=== PATIENT | male | born 1940 | race Caucasian/White ===

== ENCOUNTER → 2016-10-26 | Outpatient (CLI) | payer MEDICARE, BC ==
[2013-05-17 03:24] VITALS: BP 138/91
[~2016-10-26] MED LIST: CRESTOR; PROSCAR5 MG PO
== END ==
LOC: LAB 07:15
DX: E78.2 Mixed hyperlipidemia (principal)

== ENCOUNTER → 2016-10-27 | Outpatient (CLI) | payer MEDICARE, BC ==
[2013-05-17 03:24] VITALS: BP 138/91
== END ==
LOC: LAB 11:39
DX: I25.10 Atherosclerotic heart disease of native coronary artery without angina pectoris (principal); R20.2 Paresthesia of skin; Z12.5 Encounter for screening for malignant neoplasm of prostate; E61.1 Iron deficiency; N52.9 Male erectile dysfunction, unspecified; E78.2 Mixed hyperlipidemia; J98.4 Other disorders of lung; L57.0 Actinic keratosis; I71.4 Abdominal aortic aneurysm, without rupture; K21.9 Gastro-esophageal reflux disease without esophagitis

== ENCOUNTER → 2017-02-24 | Outpatient (CLI) | payer MEDICARE, BC ==
[2013-05-17 03:24] VITALS: BP 138/91
[2017-02-24 17:38] LABS: HEMATOCRIT 44.8 % (42.0-52.0); HEMOGLOBIN 15.1 g/dL (13.5-18.0); MEAN CELL VOLUME 94 fl (78-100); MEAN CORPUSCULAR HEMOGLOBIN 32 pg (27-31); MEAN CORPUSCULAR HGB CONC 34 g/dL (33-37); MEAN PLATELET VOLUME 9.2 fl (7.4-10.4); PLATELET COUNT 192 K/mm3 (130-400); RED BLOOD COUNT 4.78 M/mm3 (4.20-5.60); RED CELL DISTRIBUTION WIDTH 12.9 % (11.5-14.5); WHITE BLOOD COUNT 5.2 K/mm3 (4.8-10.8)
[2017-02-24 17:42] LABS: ALBUMIN 4.1 g/dL (3.5-5.0); CALCIUM 9.4 mg/dL (8.4-10.2); POTASSIUM 4.3 mmol/L (3.6-5.0); TOTAL BILIRUBIN 0.7 mg/dL (0.2-1.3); TOTAL PROTEIN 6.9 g/dL (6.3-8.2)
[2017-02-24 18:47] LABS: LYMPHOCYTE 29 % (20-51); MONOCYTE 8 % (3-10); NEUTROPHILS 59 % (42-75)
[2017-02-24 19:26] LABS: ERYTHROCYTE SEDIMENTATION RATE 8 mm/hr (0-20)
== END ==
LOC: LAB 16:04
PROVIDERS: Internal Medicine
DX: R10.11 Right upper quadrant pain (principal); E03.4 Atrophy of thyroid (acquired); K76.89 Other specified diseases of liver; M54.2 Cervicalgia

== ENCOUNTER → 2017-02-25 | Outpatient (CLI) | payer MEDICARE, BC ==
[2013-05-17 03:24] VITALS: BP 138/91
== END ==
LOC: RAD 09:34
DX: R10.11 Right upper quadrant pain (principal); K76.89 Other specified diseases of liver; Z90.49 Acquired absence of other specified parts of digestive tract
CPT/HCPCS: Q9967

== ENCOUNTER → 2017-11-01 | Outpatient (CLI) | payer MEDICARE, BC ==
[2013-05-17 03:24] VITALS: BP 138/91
[2017-11-01 12:38] LABS: EOS # 0.3 (0.04-0.40); EOS % 4.9 % (0.0-4.0); HEMATOCRIT 41.9 % (42.0-52.0); HEMOGLOBIN 14.1 g/dL (13.5-18.0); MEAN CELL VOLUME 95 fl (78-100); MEAN CORPUSCULAR HEMOGLOBIN 32 pg (27-31); MEAN CORPUSCULAR HGB CONC 34 g/dL (33-37); MEAN PLATELET VOLUME 9.3 fl (7.4-10.4); MONO # 0.4 (0.20-0.80); NEU # 3.6 (1.40-6.50); PLATELET COUNT 178 K/mm3 (130-400); RED CELL DISTRIBUTION WIDTH 12.7 % (11.5-14.5); WHITE BLOOD COUNT 5.3 K/mm3 (4.8-10.8)
[2017-11-01 12:50] LABS: BUN/CREATININE RATIO 22.3 (6.0-26.0); CALCIUM 8.6 mg/dL (8.4-10.2); POTASSIUM 4.6 mmol/L (3.6-5.0); TOTAL BILIRUBIN 0.5 mg/dL (0.2-1.3); TOTAL PROTEIN 7.2 g/dL (6.3-8.2)
[2017-11-01 14:11] LABS: ERYTHROCYTE SEDIMENTATION RATE 13 mm/hr (0-20)
== END ==
LOC: LAB 12:15
PROVIDERS: Internal Medicine
DX: Z12.11 Encounter for screening for malignant neoplasm of colon (principal); I25.10 Atherosclerotic heart disease of native coronary artery without angina pectoris; E78.5 Hyperlipidemia, unspecified; I51.9 Heart disease, unspecified

== ENCOUNTER → 2018-04-07 | Outpatient (CLI) | payer MEDICARE, BC ==
[~2018-04-07] VITALS: Ht 170.2 cm; Wt 88.2 kg
[~2018-04-07] MED LIST changes: +CLOPIDOGREL75 M2 PO
[2018-04-07 09:06] LABS: EOS # 0.3 (0.04-0.40); HEMATOCRIT 44.6 % (42.0-52.0); HEMOGLOBIN 14.9 g/dL (13.5-18.0); LYMPH# 0.9 (1.50-4.00); MEAN CELL VOLUME 94 fl (78-100); MEAN CORPUSCULAR HEMOGLOBIN 32 pg (27-31); MEAN CORPUSCULAR HGB CONC 33 g/dL (33-37); MEAN PLATELET VOLUME 9.1 fl (7.4-10.4); MONO # 0.4 (0.20-0.80); NEU # 2.7 (1.40-6.50); PLATELET COUNT 181 K/mm3 (130-400); RED BLOOD COUNT 4.73 M/mm3 (4.20-5.60); RED CELL DISTRIBUTION WIDTH 13.1 % (11.5-14.5); WHITE BLOOD COUNT 4.3 K/mm3 (4.8-10.8)
[2018-04-07 09:49] LABS: ALBUMIN 4.1 g/dL (3.5-5.0); POTASSIUM 4.5 mmol/L (3.6-5.0); TOTAL BILIRUBIN 0.6 mg/dL (0.2-1.3); TOTAL PROTEIN 6.9 g/dL (6.3-8.2)
[2018-04-07 10:03] VITALS: BP 126/68
[2018-04-07 10:22] LABS: ERYTHROCYTE SEDIMENTATION RATE 10 mm/hr (0-20)
== END ==
LOC: AMSURD 08:18
PROVIDERS: Internal Medicine
DX: G45.9 Transient cerebral ischemic attack, unspecified (principal); I25.10 Atherosclerotic heart disease of native coronary artery without angina pectoris; R42 Dizziness and giddiness; G47.33 Obstructive sleep apnea (adult) (pediatric); R20.2 Paresthesia of skin; Z79.01 Long term (current) use of anticoagulants; Z79.899 Other long term (current) drug therapy

== ENCOUNTER → 2018-04-12 | Outpatient (CLI) | payer MEDICARE, BC ==
[2018-04-07 10:03] VITALS: BP 126/68
== END ==
LOC: RAD 09:08
DX: D32.0 Benign neoplasm of cerebral meninges (principal); G45.9 Transient cerebral ischemic attack, unspecified
CPT/HCPCS: A9585

== ENCOUNTER → 2018-04-14 | Outpatient (CLI) | payer MEDICARE, BC ==
[2018-04-12 11:39] VITALS: BP 155/71
== END ==
LOC: CARDLAB 08:03 → CARDREHAB 08:29 → CARDLAB 09:30
DX: I25.10 Atherosclerotic heart disease of native coronary artery without angina pectoris (principal); R06.02 Shortness of breath; Z86.79 Personal history of other diseases of the circulatory system; Z82.49 Family history of ischemic heart disease and other diseases of the circulatory system
CPT/HCPCS: A9500

== ENCOUNTER → 2018-04-17 | Outpatient (CLI) | payer MEDICARE, BC ==
[2018-04-12 11:39] VITALS: BP 155/71
== END ==
LOC: RAD 12:00
DX: M47.812 Spondylosis without myelopathy or radiculopathy, cervical region (principal)

== ENCOUNTER → 2018-10-04 | Outpatient (CLI) | payer MEDICARE, BC ==
[2018-04-12 11:39] VITALS: BP 155/71
[2018-10-03 15:24] LABS: POTASSIUM 4.5 mmol/L (3.5-5.1)
[2018-10-03 15:26] LABS: CALCIUM 9.1 mg/dL (8.3-10.5)
== END ==
LOC: RAD 07:25
PROVIDERS: Internal Medicine
DX: D32.0 Benign neoplasm of cerebral meninges (principal)
CPT/HCPCS: A9585

== ENCOUNTER → 2018-11-02 | Outpatient (CLI) | payer MEDICARE, BC ==
[2018-04-12 11:39] VITALS: BP 155/71
[2018-11-02 09:21] LABS: EOS # 0.4 (0.04-0.40); HEMATOCRIT 42.6 % (42.0-52.0); HEMOGLOBIN 14.2 g/dL (13.5-18.0); LYMPH# 0.9 (1.50-4.00); MEAN CELL VOLUME 94 fl (78-100); MEAN CORPUSCULAR HEMOGLOBIN 31 pg (27-31); MEAN CORPUSCULAR HGB CONC 33 g/dL (33-37); MEAN PLATELET VOLUME 8.6 fl (7.4-10.4); MONO # 0.5 (0.20-0.80); PLATELET COUNT 177 K/mm3 (130-400); RED BLOOD COUNT 4.52 M/mm3 (4.20-5.60); RED CELL DISTRIBUTION WIDTH 12.9 % (11.5-14.5); WHITE BLOOD COUNT 5.8 K/mm3 (4.8-10.8)
[2018-11-02 09:34] LABS: POTASSIUM 4.2 mmol/L (3.5-5.1)
[2018-11-02 09:35] LABS: ALBUMIN 3.9 g/dL (3.4-4.8); CALCIUM 8.9 mg/dL (8.3-10.5)
[2018-11-02 09:37] LABS: TOTAL PROTEIN 6.7 g/dL (6.2-8.1)
[2018-11-02 09:39] LABS: TOTAL BILIRUBIN 0.4 mg/dL (0.2-1.2)
[2018-11-02 10:23] LABS: EOS % 6.7 % (0.0-4.0); ERYTHROCYTE SEDIMENTATION RATE 12 mm/hr (0-20)
[2018-11-02 23:29] LABS: TESTOSTERONE 346 ng/dL (221-716)
== END ==
LOC: LAB 09:09
PROVIDERS: Internal Medicine
DX: Z12.11 Encounter for screening for malignant neoplasm of colon (principal); E78.2 Mixed hyperlipidemia; I25.10 Atherosclerotic heart disease of native coronary artery without angina pectoris; D32.9 Benign neoplasm of meninges, unspecified; R20.2 Paresthesia of skin

== ENCOUNTER → 2019-01-30 | Outpatient (CLI) | payer MEDICARE, BC ==
[2018-04-12 11:39] VITALS: BP 155/71
== END ==
LOC: RAD 14:46
DX: M17.0 Bilateral primary osteoarthritis of knee (principal)

== ENCOUNTER → 2019-02-07 | Outpatient (CLI) | payer MEDICARE, BC ==
[2018-04-12 11:39] VITALS: BP 155/71
== END ==
LOC: RAD 09:43
DX: S83.231A Complex tear of medial meniscus, current injury, right knee, initial encounter (principal); M13.861 Other specified arthritis, right knee; R60.0 Localized edema; M25.461 Effusion, right knee; M71.21 Synovial cyst of popliteal space [Baker], right knee

== ENCOUNTER → 2019-04-17 | Outpatient (CLI) | payer MEDICARE, BC ==
[2018-04-12 11:39] VITALS: BP 155/71
[2019-04-17 15:43] LABS: EOS # 0.3 (0.04-0.40); EOS % 3.3 % (0.0-4.0); HEMOGLOBIN 14.3 g/dL (13.5-18.0); LYMPH# 0.9 (1.50-4.00); MEAN CELL VOLUME 94 fl (78-100); MEAN CORPUSCULAR HEMOGLOBIN 31 pg (27-31); MEAN CORPUSCULAR HGB CONC 33 g/dL (33-37); MEAN PLATELET VOLUME 8.8 fl (7.4-10.4); MONO # 0.7 (0.20-0.80); NEU # 5.7 (1.40-6.50); PLATELET COUNT 185 K/mm3 (130-400); RED BLOOD COUNT 4.56 M/mm3 (4.20-5.60); WHITE BLOOD COUNT 7.6 K/mm3 (4.8-10.8)
[2019-04-17 15:45] LABS: ALBUMIN 4.1 g/dL (3.4-4.8); POTASSIUM 4.1 mmol/L (3.5-5.1)
[2019-04-17 15:47] LABS: TOTAL PROTEIN 7.1 g/dL (6.2-8.1)
[2019-04-17 15:49] LABS: TOTAL BILIRUBIN 0.4 mg/dL (0.2-1.2)
== END ==
LOC: LAB 15:21
PROVIDERS: Internal Medicine
DX: D32.9 Benign neoplasm of meninges, unspecified (principal); I25.10 Atherosclerotic heart disease of native coronary artery without angina pectoris; E78.5 Hyperlipidemia, unspecified; R20.2 Paresthesia of skin

== ENCOUNTER 2019-08-29 08:00 | Outpatient (RCR) | payer MEDICARE, BC ==
[2018-04-12 11:39] VITALS: BP 155/71
== END 2019-08-29 08:30 | disposition still patient (30) ==
LOC: PT 08:00
DX: M17.11 Unilateral primary osteoarthritis, right knee (principal)

== ENCOUNTER → 2019-10-16 | Outpatient (CLI) | payer MEDICARE, BC ==
[2018-04-12 11:39] VITALS: BP 155/71
[2019-10-16 15:15] LABS: EOS # 0.2 (0.04-0.40); EOS % 4.3 % (0.0-4.0); HEMATOCRIT 43.1 % (42.0-52.0); HEMOGLOBIN 14.6 g/dL (13.5-18.0); LYMPH# 0.9 (1.50-4.00); MEAN CELL VOLUME 94 fl (78-100); MEAN CORPUSCULAR HEMOGLOBIN 32 pg (27-31); MEAN CORPUSCULAR HGB CONC 34 g/dL (33-37); MEAN PLATELET VOLUME 9.1 fl (7.4-10.4); MONO # 0.5 (0.20-0.80); NEU # 3.1 (1.40-6.50); PLATELET COUNT 191 K/mm3 (130-400); RED BLOOD COUNT 4.57 M/mm3 (4.20-5.60); RED CELL DISTRIBUTION WIDTH 12.9 % (11.5-14.5); WHITE BLOOD COUNT 4.7 K/mm3 (4.8-10.8)
[2019-10-16 15:36] LABS: POTASSIUM 4.1 mmol/L (3.5-5.1)
[2019-10-16 15:38] LABS: CALCIUM 8.7 mg/dL (8.3-10.5)
[2019-10-16 15:39] LABS: TOTAL PROTEIN 7.2 g/dL (6.2-8.1)
[2019-10-16 15:41] LABS: TOTAL BILIRUBIN 0.3 mg/dL (0.2-1.2)
[2019-10-16 15:45] LABS: MAGNESIUM 1.99 mg/dL (1.60-2.60)
[2019-10-16 16:08] LABS: PROTHROMBIN TIME 9.3 SECONDS (9.0-12.0)
[2019-10-16 16:20] LABS: URINE APPEARANCE CLEAR; URINE COLOR YELLOW
[2019-10-16 16:21] LABS: URINE BILIRUBIN NEGATIVE (NEGATIVE); URINE BLOOD 50 ery/uL (NEGATIVE); URINE GLUCOSE NEGATIVE (NEGATIVE); URINE KETONE NEGATIVE (NEGATIVE); URINE LEUKOCYTE ESTERASE NEGATIVE (NEGATIVE); URINE NITRATE NEGATIVE (NEGATIVE); URINE PROTEIN(semi-quant) NEGATIVE (NEGATIVE); URINE UROBILINOGEN NORMAL (NORMAL)
[2019-10-16 16:22] LABS: URINE MUCUS PRESENT (NOT PRESENT); URINE WBC 0-1 /hpf (0-3)
== END ==
LOC: AMSURD 13:59
PROVIDERS: Internal Medicine
DX: Z01.818 Encounter for other preprocedural examination (principal); Z51.81 Encounter for therapeutic drug level monitoring; I25.10 Atherosclerotic heart disease of native coronary artery without angina pectoris; D32.9 Benign neoplasm of meninges, unspecified; E03.4 Atrophy of thyroid (acquired); M17.0 Bilateral primary osteoarthritis of knee; E78.5 Hyperlipidemia, unspecified; R20.2 Paresthesia of skin

== ENCOUNTER → 2019-10-19 | Outpatient (CLI) | payer MEDICARE, BC ==
[2018-04-12 11:39] VITALS: BP 155/71
== END ==
LOC: LAB 09:31
DX: Z01.818 Encounter for other preprocedural examination (principal)

== ENCOUNTER → 2019-11-09 | Outpatient (CLI) | payer MEDICARE, BC ==
[2018-04-12 11:39] VITALS: BP 155/71
[2019-11-09 08:41] LABS: URINE WBC 0 /hpf (0-3)
[2019-11-09 09:27] LABS: PH-URINE 5.5 (5.0 - 8.0); URINE APPEARANCE CLEAR; URINE BILIRUBIN NEGATIVE (NEGATIVE); URINE BLOOD NEGATIVE (NEGATIVE); URINE COLOR YELLOW; URINE GLUCOSE NEGATIVE (NEGATIVE); URINE KETONE NEGATIVE (NEGATIVE); URINE LEUKOCYTE ESTERASE NEGATIVE (NEGATIVE); URINE NITRATE NEGATIVE (NEGATIVE); URINE PROTEIN(semi-quant) NEGATIVE (NEGATIVE); URINE UROBILINOGEN NORMAL (NORMAL)
== END ==
LOC: LAB 08:38
PROVIDERS: Internal Medicine
DX: R31.29 Other microscopic hematuria (principal)

== ENCOUNTER → 2019-12-07 | Outpatient (CLI) | payer MEDICARE, BC ==
[2018-04-12 11:39] VITALS: BP 155/71
[2019-12-07 16:32] LABS: PH-URINE 5.5 (5.0 - 8.0); URINE APPEARANCE CLOUDY; URINE BILIRUBIN NEGATIVE (NEGATIVE); URINE BLOOD TRACE (NEGATIVE); URINE COLOR YELLOW; URINE GLUCOSE NEGATIVE (NEGATIVE); URINE KETONE NEGATIVE (NEGATIVE); URINE LEUKOCYTE ESTERASE TRACE (NEGATIVE); URINE MUCUS PRESENT (NOT PRESENT); URINE NITRATE NEGATIVE (NEGATIVE); URINE PROTEIN(semi-quant) 1+ mg/dL (NEGATIVE); URINE UROBILINOGEN NORMAL (NORMAL)
== END ==
LOC: LAB 16:10
PROVIDERS: Internal Medicine
DX: N39.0 Urinary tract infection, site not specified (principal)

== ENCOUNTER → 2019-12-10 08:00 | Outpatient (RCR) | payer MEDICARE, BC ==
[2018-04-12 11:39] VITALS: BP 155/71
== END | disposition still patient (30) ==
LOC: PT 11-05 08:54
DX: M25.561 Pain in right knee (principal); Z96.651 Presence of right artificial knee joint

== ENCOUNTER → 2020-08-04 | Outpatient (CLI) | payer MEDICARE, BC ==
[2018-04-12 11:39] VITALS: BP 155/71
[~2020-08-04] MED LIST changes: +ADULT ASPIRIN R81 MG PO; -CRESTOR; +CRESTOR5 MG PO; +OMEPRAZOLE40 MG PO; +PROSCAR PO; -PROSCAR5 MG PO
[2020-08-04 10:23] LABS: EOS # 0.3 (0.04-0.40); HEMATOCRIT 47.1 % (42.0-52.0); HEMOGLOBIN 15.7 g/dL (13.5-18.0); LYMPH# 0.8 (1.50-4.00); MEAN CELL VOLUME 95 fl (78-100); MEAN CORPUSCULAR HEMOGLOBIN 32 pg (27-31); MEAN CORPUSCULAR HGB CONC 33 g/dL (33-37); MEAN PLATELET VOLUME 8.6 fl (7.4-10.4); MONO # 0.4 (0.20-0.80); NEU # 2.6 (1.40-6.50); PLATELET COUNT 197 K/mm3 (130-400); RED BLOOD COUNT 4.97 M/mm3 (4.20-5.60); RED CELL DISTRIBUTION WIDTH 12.9 % (11.5-14.5); WHITE BLOOD COUNT 4.1 K/mm3 (4.8-10.8)
[2020-08-04 10:31] LABS: ALBUMIN 4.4 g/dL (3.4-4.8); POTASSIUM 4.5 mmol/L (3.5-5.1)
[2020-08-04 10:33] LABS: CALCIUM 9.5 mg/dL (8.3-10.5)
[2020-08-04 10:34] LABS: TOTAL PROTEIN 7.5 g/dL (6.2-8.1)
[2020-08-04 10:36] LABS: TOTAL BILIRUBIN 0.6 mg/dL (0.2-1.2)
[2020-08-04 10:49] LABS: EOS % 7.1 % (0.0-4.0)
== END ==
LOC: LAB 10:04
PROVIDERS: Internal Medicine
DX: I25.10 Atherosclerotic heart disease of native coronary artery without angina pectoris (principal); R20.2 Paresthesia of skin; K90.9 Intestinal malabsorption, unspecified

== ENCOUNTER 2020-08-30 19:59 | Emergency (ER) | payer MEDICARE, BC ==
[~2020-08-30 19:59] MED LIST changes: -ADULT ASPIRIN R81 MG PO; -OMEPRAZOLE40 MG PO
[2020-08-30] MEDS ORDERED: OMEPRAZOLE40 MG PO (21:12)
[2020-08-30] MEDS ORDERED: ADULT ASPIRIN R81 MG PO (21:13)
[2020-08-30 23:19] VITALS: BP 160/90
== END 2020-08-30 23:19 | disposition home or self-care (01) ==
LOC: ED 19:59
DX: K59.00 Constipation, unspecified (principal); N40.0 Benign prostatic hyperplasia without lower urinary tract symptoms; Z86.73 Personal history of transient ischemic attack (TIA), and cerebral infarction without residual deficits; Z90.49 Acquired absence of other specified parts of digestive tract; Z79.01 Long term (current) use of anticoagulants

== ENCOUNTER → 2021-02-17 | Outpatient (CLI) | payer MEDICARE, BC ==
[~2021-02-17] MED LIST changes: +ADULT ASPIRIN R81 MG PO; +OMEPRAZOLE40 MG PO
[2021-02-17 09:25] LABS: BASO # 0.02 K/mm3 (0.02-0.10); EOS # 0.16 K/mm3 (0.04-0.40); EOS % 3.2 % (0.0-4.0); HEMATOCRIT 46.1 % (42.0-52.0); HEMOGLOBIN 15.2 g/dL (13.5-18.0); LYMPH# 0.79 K/mm3 (1.50-4.00); MEAN CELL VOLUME 98 fl (78-100); MEAN CORPUSCULAR HEMOGLOBIN 32 pg (27-31); MEAN CORPUSCULAR HGB CONC 33 g/dL (33-37); MEAN PLATELET VOLUME 8.7 fl (7.4-10.4); MONO # 0.39 K/mm3 (0.20-0.80); NEU # 3.58 K/mm3 (1.40-6.50); PLATELET COUNT 193 K/mm3 (130-400); RED BLOOD COUNT 4.73 M/mm3 (4.20-5.60); RED CELL DISTRIBUTION WIDTH 12.5 % (11.5-14.5); WHITE BLOOD COUNT 4.9 K/mm3 (4.8-10.8)
[2021-02-17 09:29] LABS: POTASSIUM 4.7 mmol/L (3.5-5.1)
[2021-02-17 09:31] LABS: CALCIUM 9.3 mg/dL (8.3-10.5)
[2021-02-17 09:34] LABS: TOTAL BILIRUBIN 0.9 mg/dL (0.2-1.2)
== END ==
LOC: LAB 08:44
PROVIDERS: Internal Medicine
DX: I51.9 Heart disease, unspecified (principal); K90.9 Intestinal malabsorption, unspecified; R97.8 Other abnormal tumor markers; E78.2 Mixed hyperlipidemia

== ENCOUNTER → 2021-03-03 | Outpatient (CLI) | payer MEDICARE, BC | LOC: RAD 02-19 16:00 | DX: D32.0 Benign neoplasm of cerebral meninges (principal) | CPT/HCPCS: A9585 ==

== ENCOUNTER → 2021-03-24 | Outpatient (CLI) | payer MEDICARE, BC ==
[2021-03-24 08:47] LABS: ALBUMIN 4.1 g/dL (3.4-4.8); POTASSIUM 4.4 mmol/L (3.5-5.1)
[2021-03-24 08:48] LABS: CALCIUM 9.2 mg/dL (8.3-10.5)
[2021-03-24 08:50] LABS: TOTAL PROTEIN 6.7 g/dL (6.2-8.1)
[2021-03-24 08:51] LABS: TOTAL BILIRUBIN 0.8 mg/dL (0.2-1.2)
== END ==
LOC: LAB 08:22
PROVIDERS: Internal Medicine
DX: I25.10 Atherosclerotic heart disease of native coronary artery without angina pectoris (principal); K90.9 Intestinal malabsorption, unspecified

== ENCOUNTER → 2021-04-17 | Outpatient (CLI) | payer MEDICARE, BC | LOC: LAB 13:04 | DX: Z01.812 Encounter for preprocedural laboratory examination (principal); Z20.822 Contact with and (suspected) exposure to COVID-19 ==

== ENCOUNTER → 2021-07-30 | Outpatient (CLI) | payer MEDICARE, BC ==
[2021-07-30 10:41] LABS: BASO # 0.03 K/mm3 (0.02-0.10); EOS # 0.24 K/mm3 (0.04-0.40); EOS % 5.5 % (0.0-4.0); HEMATOCRIT 44.3 % (42.0-52.0); LYMPH# 0.82 K/mm3 (1.50-4.00); MEAN CELL VOLUME 96 fl (78-100); MEAN CORPUSCULAR HEMOGLOBIN 33 pg (27-31); MEAN CORPUSCULAR HGB CONC 34 g/dL (33-37); MEAN PLATELET VOLUME 8.4 fl (7.4-10.4); MONO # 0.29 K/mm3 (0.20-0.80); NEU # 3.01 K/mm3 (1.40-6.50); PLATELET COUNT 173 K/mm3 (130-400); RED BLOOD COUNT 4.62 M/mm3 (4.20-5.60); RED CELL DISTRIBUTION WIDTH 12.2 % (11.5-14.5); WHITE BLOOD COUNT 4.4 K/mm3 (4.8-10.8)
[2021-07-30 10:50] LABS: ALBUMIN 4.2 g/dL (3.4-4.8)
[2021-07-30 10:51] LABS: POTASSIUM 4.4 mmol/L (3.5-5.1)
[2021-07-30 10:52] LABS: CALCIUM 9.3 mg/dL (8.3-10.5)
[2021-07-30 10:55] LABS: TOTAL BILIRUBIN 0.7 mg/dL (0.2-1.2)
== END ==
LOC: LAB 10:26
PROVIDERS: Internal Medicine
DX: D32.9 Benign neoplasm of meninges, unspecified (principal); I51.9 Heart disease, unspecified; I25.10 Atherosclerotic heart disease of native coronary artery without angina pectoris; K21.9 Gastro-esophageal reflux disease without esophagitis; J98.4 Other disorders of lung; G47.33 Obstructive sleep apnea (adult) (pediatric); E53.8 Deficiency of other specified B group vitamins

== ENCOUNTER → 2022-02-24 | Outpatient (CLI) | payer MEDICARE, BC ==
[2022-02-24 08:13] LABS: BASO # 0.02 K/mm3 (0.02-0.10); EOS # 0.27 K/mm3 (0.04-0.40); EOS % 6.4 % (0.0-4.0); HEMATOCRIT 44.7 % (42.0-52.0); HEMOGLOBIN 14.6 g/dL (13.5-18.0); LYMPH# 0.96 K/mm3 (1.50-4.00); MEAN CELL VOLUME 97 fl (78-100); MEAN CORPUSCULAR HEMOGLOBIN 32 pg (27-31); MEAN CORPUSCULAR HGB CONC 33 g/dL (33-37); MEAN PLATELET VOLUME 8.9 fl (7.4-10.4); MONO # 0.38 K/mm3 (0.20-0.80); NEU # 2.62 K/mm3 (1.40-6.50); PLATELET COUNT 168 K/mm3 (130-400); RED BLOOD COUNT 4.62 M/mm3 (4.20-5.60); RED CELL DISTRIBUTION WIDTH 12.6 % (11.5-14.5); WHITE BLOOD COUNT 4.3 K/mm3 (4.8-10.8)
[2022-02-24 08:20] LABS: POTASSIUM 4.2 mmol/L (3.5-5.1)
[2022-02-24 08:23] LABS: TOTAL PROTEIN 6.8 g/dL (6.2-8.1)
[2022-02-24 08:25] LABS: TOTAL BILIRUBIN 0.7 mg/dL (0.2-1.2)
== END ==
LOC: LAB 07:40
PROVIDERS: Internal Medicine
DX: Z12.5 Encounter for screening for malignant neoplasm of prostate (principal); Z23 Encounter for immunization; I51.9 Heart disease, unspecified; K90.9 Intestinal malabsorption, unspecified; D32.9 Benign neoplasm of meninges, unspecified; I25.10 Atherosclerotic heart disease of native coronary artery without angina pectoris; K21.9 Gastro-esophageal reflux disease without esophagitis; G47.33 Obstructive sleep apnea (adult) (pediatric); J98.4 Other disorders of lung; E53.8 Deficiency of other specified B group vitamins

== ENCOUNTER → 2022-03-16 | Outpatient (CLI) | payer MEDICARE, BC | LOC: RAD 03-09 14:00 | DX: D32.9 Benign neoplasm of meninges, unspecified (principal) | CPT/HCPCS: A9575 ==

== ENCOUNTER → 2022-07-13 | Outpatient (CLI) | payer MEDICARE, BC ==
[2022-07-13 14:58] LABS: BASO # 0.03 K/mm3 (0.02-0.10); EOS # 0.28 K/mm3 (0.04-0.40); EOS % 5.8 % (0.0-4.0); HEMATOCRIT 44.7 % (42.0-52.0); LYMPH# 0.95 K/mm3 (1.50-4.00); MEAN CELL VOLUME 96 fl (78-100); MEAN CORPUSCULAR HEMOGLOBIN 32 pg (27-31); MEAN CORPUSCULAR HGB CONC 34 g/dL (33-37); MEAN PLATELET VOLUME 8.9 fl (7.4-10.4); MONO # 0.34 K/mm3 (0.20-0.80); PLATELET COUNT 179 K/mm3 (130-400); RED BLOOD COUNT 4.64 M/mm3 (4.20-5.60); RED CELL DISTRIBUTION WIDTH 12.5 % (11.5-14.5); WHITE BLOOD COUNT 4.8 K/mm3 (4.8-10.8)
[2022-07-13 15:03] LABS: ALBUMIN 4.3 g/dL (3.4-4.8)
[2022-07-13 15:04] LABS: POTASSIUM 4.3 mmol/L (3.5-5.1)
[2022-07-13 15:05] LABS: CALCIUM 9.4 mg/dL (8.3-10.5)
[2022-07-13 15:08] LABS: TOTAL BILIRUBIN 0.5 mg/dL (0.2-1.2)
[2022-07-13 15:11] LABS: URINE APPEARANCE CLEAR; URINE BILIRUBIN NEGATIVE (NEGATIVE); URINE BLOOD TRACE (NEGATIVE); URINE COLOR YELLOW; URINE GLUCOSE NEGATIVE (NEGATIVE); URINE KETONE NEGATIVE (NEGATIVE); URINE LEUKOCYTE ESTERASE NEGATIVE (NEGATIVE); URINE MUCUS PRESENT (NOT PRESENT); URINE NITRATE NEGATIVE (NEGATIVE); URINE PROTEIN(semi-quant) TRACE (NEGATIVE); URINE UROBILINOGEN NORMAL (NORMAL); URINE WBC 0-1 /hpf (0-3)
[2022-07-13 15:13] LABS: MAGNESIUM 2.04 mg/dL (1.60-2.60)
== END ==
LOC: LAB 14:22
PROVIDERS: Internal Medicine
DX: Z01.812 Encounter for preprocedural laboratory examination (principal); Z01.810 Encounter for preprocedural cardiovascular examination; J98.11 Atelectasis; H26.9 Unspecified cataract; H25.012 Cortical age-related cataract, left eye; I25.10 Atherosclerotic heart disease of native coronary artery without angina pectoris; G47.33 Obstructive sleep apnea (adult) (pediatric)

== ENCOUNTER → 2023-03-15 | Outpatient (CLI) | payer MEDICARE, BC | LOC: RAD 11:04 | DX: M17.12 Unilateral primary osteoarthritis, left knee (principal); M25.462 Effusion, left knee; D32.9 Benign neoplasm of meninges, unspecified ==

== ENCOUNTER → 2023-07-21 | Outpatient (CLI) | payer MEDICARE, BC | LOC: RAD 14:56 | DX: M47.22 Other spondylosis with radiculopathy, cervical region (principal) ==

== ENCOUNTER → 2023-08-05 | Outpatient (CLI) | payer MEDICARE, BC ==
[~2023-08-05] VITALS: Ht 170.2 cm; Wt 89.4 kg
== END ==
LOC: CARDREHAB 08:44
DX: R06.00 Dyspnea, unspecified (principal)
CPT/HCPCS: A9500

== ENCOUNTER → 2024-05-03 | Outpatient (CLI) | payer MEDICARE, BC ==
[2024-05-03 10:03] LABS: BASO # 0.02 K/mm3 (0.02-0.10); EOS # 0.19 K/mm3 (0.04-0.40); EOS % 4.2 % (0.0-4.0); HEMATOCRIT 45.3 % (42.0-52.0); HEMOGLOBIN 14.7 g/dL (13.5-18.0); MEAN CELL VOLUME 97 fl (78-100); MEAN CORPUSCULAR HEMOGLOBIN 32 pg (27-31); MEAN CORPUSCULAR HGB CONC 33 g/dL (33-37); MEAN PLATELET VOLUME 8.5 fl (7.4-10.4); MONO # 0.31 K/mm3 (0.20-0.80); NEU # 3.24 K/mm3 (1.40-6.50); PLATELET COUNT 160 K/mm3 (130-400); RED BLOOD COUNT 4.65 M/mm3 (4.20-5.60); RED CELL DISTRIBUTION WIDTH 12.9 % (11.5-14.5); WHITE BLOOD COUNT 4.6 K/mm3 (4.8-10.8)
[2024-05-03 10:09] LABS: ALBUMIN 4.3 g/dL (3.4-4.8)
[2024-05-03 10:10] LABS: CALCIUM 9.5 mg/dL (8.3-10.5)
[2024-05-03 10:11] LABS: TOTAL PROTEIN 7.7 g/dL (6.2-8.1)
[2024-05-03 10:13] LABS: TOTAL BILIRUBIN 0.7 mg/dL (0.2-1.2)
[2024-05-03 10:18] LABS: MAGNESIUM 1.92 mg/dL (1.60-2.60)
[2024-05-03 10:38] LABS: URINE APPEARANCE CLEAR (CLEAR); URINE BILIRUBIN NEGATIVE (NEGATIVE); URINE BLOOD NEGATIVE (NEGATIVE); URINE COLOR YELLOW (YELLOW); URINE GLUCOSE NEGATIVE (NEGATIVE); URINE KETONE NEGATIVE (NEGATIVE); URINE LEUKOCYTE ESTERASE NEGATIVE (NEGATIVE); URINE NITRATE NEGATIVE (NEGATIVE); URINE PROTEIN(semi-quant) NEGATIVE (NEGATIVE); URINE WBC 0-1 /hpf (0-3)
[2024-05-03 22:59] LABS: TESTOSTERONE 561 ng/dL (221-716)
== END ==
LOC: LAB 09:46
PROVIDERS: Internal Medicine
DX: Z12.11 Encounter for screening for malignant neoplasm of colon (principal); Z12.5 Encounter for screening for malignant neoplasm of prostate; K90.9 Intestinal malabsorption, unspecified; I25.10 Atherosclerotic heart disease of native coronary artery without angina pectoris; E78.2 Mixed hyperlipidemia; R73.9 Hyperglycemia, unspecified; F52.21 Male erectile disorder; N39.0 Urinary tract infection, site not specified